=== PATIENT | male | born 1965 | race Caucasian/White ===

== ENCOUNTER 2017-09-06 09:11 | Emergency (ER) | payer MEDICAID, OTHER ==
[~2017-09-06] VITALS: Ht 182.9 cm; Wt 118.0 kg
[~2017-09-06 09:11] MED LIST: CLIN200T PO; Z.0.NO CURRENT MEDS
[2017-09-06 09:12] VITALS: BP 185/116; PULSE 82; RESP 18; TEMP 97.7; O2SAT 98
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
[2017-09-06] MEDS ORDERED: cloNIDine HCL 0.1 MG TAB PO ONE (09:45)
[2017-09-06 10:09] LABS: CHLORIDE 102 MEQ/L (98-107); SODIUM (NA) 135 MEQ/L (136-145)
[2017-09-06 10:11] LABS: AUTOMATED NEUTROPHIL # 4.6 TH/MM3 (1.8-7.7); BASOPHIL # 0.1 TH/MM3 (0-0.2); BASOPHIL % 0.7 % (0.0-2.0); EOSINOPHIL # 0.2 TH/MM3 (0-0.4); HEMATOCRIT 47.7 % (39.0-51.0); HEMOGLOBIN 16.4 GM/DL (13.0-17.0); LYMPH % 30.9 % (9.0-44.0); LYMPHOCYTE # 2.5 TH/MM3 (1.0-4.8); MEAN CELL VOLUME 87.1 FL (80.0-100.0); MEAN CORPUSCULAR HEMOGLOBIN 29.9 PG (27.0-34.0); MEAN CORPUSCULAR HGB CONC 34.3 % (32.0-36.0); MEAN PLATELET VOLUME 8.1 FL (7.0-11.0); MONO % 7.3 % (0.0-8.0); MONOCYTE # 0.6 TH/MM3 (0-0.9); NEUT % 59.1 % (16.0-70.0); PLATELET COUNT 352 TH/MM3 (150-450); RED BLOOD COUNT 5.48 MIL/MM3 (4.50-5.90)
[2017-09-06 10:14] LABS: BICARBONATE 24.8 MEQ/L (21.0-32.0); CALCIUM 8.9 MG/DL (8.5-10.1); GLUCOSE,RANDOM 98 MG/DL (74-106)
[2017-09-06 10:15] LABS: BLOOD UREA NITROGEN 11 MG/DL (7-18)
[2017-09-06 10:18] LABS: CREATININE 0.95 MG/DL (0.60-1.30); GLOMERULAR FILTRATION RATE 83 ML/MIN (>89)
[2017-09-06 10:22] LABS: TROPONIN I LESS THAN 0.02 NG/ML (0.02-0.05)
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
[2017-09-06 11:05] VITALS: BP 156/96; PULSE 82; RESP 16; O2SAT 95
[2017-09-06] MEDS ORDERED: LISI-515 PO (11:17)
--- NOTE | 2017-09-06 21:15 | EKG ---
Date Performed: 09/06/2017 Time Performed: 09:25:14 PTAGE: 52 years EKG: Sinus rhythm WITH SINUS ARRHYTHMIA BORDERLINE LEFT AXIS DEVIATION BORDERLINE ECG NO PREVIOUS TRACING DOCTOR: Laura Bass Interpretating Date/Time 09/06/2017 21:14:00
== END 2017-09-06 11:30 | disposition home or self-care (01) ==
LOC: PHED 09:11
DX: R07.89 Other chest pain (principal); I10 Essential (primary) hypertension
CPT/HCPCS: 71046; 80048; 84484; 85025; 93005; 99285